=== PATIENT | male | born 1975 | race Two or more races ===

== ENCOUNTER 2019-07-13 09:38 | Outpatient (CLI) | payer OTHER | END 2019-07-13 09:48 | disposition home or self-care (01) | LOC: SONOGRAMA 09:38 → MAMO-SONO 09:45 → SONOGRAMA 09:48 | DX: D49.2 Neoplasm of unspecified behavior of bone, soft tissue, and skin (principal); M79.672 Pain in left foot; M79.671 Pain in right foot ==

== ENCOUNTER 2020-08-05 09:15 | Outpatient (CLI) | payer OTHER | END 2020-08-05 09:34 | disposition home or self-care (01) | LOC: NUCLEAR 09:15 | PROVIDERS: ATTEND Personal Emergency Response Attendant | DX: I73.9 Peripheral vascular disease, unspecified (principal); M79.606 Pain in leg, unspecified ==

== ENCOUNTER 2020-08-06 09:27 | Outpatient (CLI) | payer OTHER | END 2020-08-06 10:12 | disposition home or self-care (01) | LOC: NUCLEAR 09:27 | PROVIDERS: ATTEND Personal Emergency Response Attendant | DX: I82.401 Acute embolism and thrombosis of unspecified deep veins of right lower extremity (principal); M79.605 Pain in left leg ==